=== PATIENT | female | born 1975 | race Caucasian/White ===

== ENCOUNTER 2024-05-29 17:59 | Observation (INO) | payer OTHER, SELFPAY ==
[2024-05-29] VITALS (16 sets, daily range): BP systolic 109–191; BP diastolic 53–82; BMI 58.1; BMI 57.4
--- NOTE | 2024-05-29 11:45 | ED.GENMED ---
History of Present Illness
<Mann Srinivasan PA-C - Last Filed: 05/29/24 15:34>
General
Chief Complaint: Vaginal Bleeding
Time Seen by Provider: 05/29/24 11:26
History of Present Illness
History of Present Illness:
Patient is a 49-year-old female with past medical history of anemia and abnormal vaginal bleeding here today for evaluation of anemia. The patient states over the past 4 weeks she has been having worsening bleeding. She does report passage of
clots and has noted large amounts of vaginal bleeding at times going through 1-2 pads per hour. Patient reports a longstanding history of vaginal bleeding but she has undergone workups previously with G[facility] INSTRUCTOR and they have not been able to identify
why she has been bleeding. She recently had a D&C this past December as well as implantation of an IUD but this has not improved her bleeding. The patient contacted her family doctor this past week and ordered blood work which she underwent
yesterday. She was found to have a hemoglobin of 6.6 and patient was ultimately directed to the emergency department for further testing and evaluation including blood transfusion. The patient does feel short of breath that is worsened with
exertion associated with lightheadedness, dizziness, and fatigue. No syncope. No chest pain.
Review of Systems
<Mann Srinivasan PA-C - Last Filed: 05/29/24 15:34>
Review of Systems
All Other Systems: ROS reviewed and negative except as documented in HPI and ROS
Phy Exam
<Mann Srinivasan PA-C - Last Filed: 05/29/24 15:34>
Physical Exam
Physical Exam:
GENERAL: Alert , in no apparent distress
EYE: pupils equal and reactive
NECK: Supple, no significant adenopathy.
ENT: o/p clr, mmm. Pale conjunctiva.
CARDIAC: Regular rate and rhythm .
LUNGS: Clear breath sounds bilaterally, no acute respiratory distress, no wheezes/rales/rhonchi
ABDOMEN: Soft, without focal tenderness, no r/g, no cvat
NEUROLOGICAL: Alert and oriented, no focal neuro deficits
SKIN: Warm and dry, skin intact.
MUSCULOSKELETAL: No edema, well perfused.
PSYCH: Normal and appropriate interaction.
Course
<Mann Srinivasan PA-C - Last Filed: 05/29/24 15:34>
Orders/Labs/Results
Orders:
Orders
05/29/24 11:43
Transvaginal US [US Pelvis W Transvag Combined] Urgent
Comment:
Reason For Exam: AUB, anemia, needs blood transfusion
05/29/24 11:47
Electrocardiogram (*1) Urgent
Reason for Study: Shortness of Breath
EKG- Treatment ONCE
05/29/24 11:55
Type+Screen Urgent
Complete Blood Count/With Diff Urgent
Comprehensive Metabolic Panel Urgent
PTT Urgent
Prothrombin Time Urgent
05/29/24 13:00
ABO2 Urgent
BBK Wristband Number:
05/29/24 13:16
* Blood Bank Products Urgent
Blood Bank Products: *Packed RBC Leuko(PRBC's)
Quantity: 1
Transfuse Today: Yes
Reason: Anemia
Abnormal Lab Results
05/29/24
11:55
RBC 2.49 L 10^6/uL
(4.20-5.40)
Hgb 6.2 L* g/dL
(12.0-16.0)
Hct 20.0 L* %
(37.0-47.0)
MCV 80.3 L fL
(81.0-99.0)
MCH 24.9 L pg
(27.0-31.0)
MCHC 31.0 L g/dL
(33.0-37.0)
RDW 19.7 H %
(11.5-14.5)
Abs Immat Gran (auto) 0.2 H 10^3/uL
(0-0.05)
Absolute Neuts (auto) 7.1 H 10^3/uL
(1.4-6.5)
Immature Gran % 2.2 H %
(0-0.5)
Neutrophils % 75.8 H %
(42.2-75.2)
Lymphocytes % 15.2 L %
(20.5-51.1)
Glucose 138 H mg/dl
(70-99)
Alkaline Phosphatase 128 H U/L
(38-126)
Crossmatch IS Only See Detail
05/29/24 11:55
05/29/24 11:55
Vital Signs
Initial and Last Documented VS:
Initial Vital Signs
Temp Pulse Resp BP Pulse Ox
98.1 F 86 18 151/68 99
05/29/24 10:58 05/29/24 10:58 05/29/24 10:58 05/29/24 10:58 05/29/24 10:58
Last Documented Vital Signs
Temp Pulse Resp BP Pulse Ox
98.2 F 77 22 109/53 97
05/29/24 14:52 05/29/24 14:52 05/29/24 14:52 05/29/24 14:52 05/29/24 14:30
<Maria Eugenia Shah MD - Last Filed: 05/29/24 15:48>
Orders/Labs/Results
Orders:
Orders
05/29/24 11:43
Transvaginal US [US Pelvis W Transvag Combined] Urgent
Comment:
Reason For Exam: AUB, anemia, needs blood transfusion
05/29/24 11:47
Electrocardiogram (*1) Urgent
Reason for Study: Shortness of Breath
EKG- Treatment ONCE
05/29/24 11:55
Type+Screen Urgent
Complete Blood Count/With Diff Urgent
Comprehensive Metabolic Panel Urgent
PTT Urgent
Prothrombin Time Urgent
05/29/24 13:00
ABO2 Urgent
BBK Wristband Number:
05/29/24 13:16
* Blood Bank Products Urgent
Blood Bank Products: *Packed RBC Leuko(PRBC's)
Quantity: 1
Transfuse Today: Yes
Reason: Anemia
Abnormal Lab Results
05/29/24
11:55
RBC 2.49 L 10^6/uL
(4.20-5.40)
Hgb 6.2 L* g/dL
(12.0-16.0)
Hct 20.0 L* %
(37.0-47.0)
MCV 80.3 L fL
(81.0-99.0)
MCH 24.9 L pg
(27.0-31.0)
MCHC 31.0 L g/dL
(33.0-37.0)
RDW 19.7 H %
(11.5-14.5)
Abs Immat Gran (auto) 0.2 H 10^3/uL
(0-0.05)
Absolute Neuts (auto) 7.1 H 10^3/uL
(1.4-6.5)
Immature Gran % 2.2 H %
(0-0.5)
Neutrophils % 75.8 H %
(42.2-75.2)
Lymphocytes % 15.2 L %
(20.5-51.1)
Glucose 138 H mg/dl
(70-99)
Alkaline Phosphatase 128 H U/L
(38-126)
Crossmatch IS Only See Detail
05/29/24 11:55
05/29/24 11:55
Vital Signs
Initial and Last Documented VS:
Initial Vital Signs
Temp Pulse Resp BP Pulse Ox
98.1 F 86 18 151/68 99
05/29/24 10:58 05/29/24 10:58 05/29/24 10:58 05/29/24 10:58 05/29/24 10:58
Last Documented Vital Signs
Temp Pulse Resp BP Pulse Ox
98.2 F 77 22 109/53 97
05/29/24 14:52 05/29/24 14:52 05/29/24 14:52 05/29/24 14:52 05/29/24 14:30
<Mann Srinivasan PA-C - Last Filed: 05/29/24 15:34>
MDM/Problems Addressed
Differential Diagnosis Includes:
Patient is a 49-year-old female with past medical history of anemia and abnormal vaginal bleeding here today for evaluation of anemia in the setting of abnormal uterine bleeding. Overall, patient appears very well. Vitals remarkable for an
elevated blood pressure. Physical examination described above. We will perform a pelvic exam. Will repeat blood work. Will obtain type and screen. Patient will ultimately require a blood transfusion. Will also order a transvaginal ultrasound.
Patient will require admission and G[facility]CTOR consultation.
05/29/2024 15:31: Screening labs reveal anemia with a hemoglobin of 6.2. EKG nonischemic. Transvaginal ultrasound limited but without acute abnormalities. Discussed performing a pelvic exam but patient adamantly declined. Risks discussed.
Patient consented for blood transfusion and will initiate 1 unit of PRBCs. Case was discussed with [facility] team, Dr. Gisele Gerardo. Given ongoing bleeding with symptomatic anemia we will admit to [facility] for further monitoring and
treatment/evaluation. Patient stable at time of admission. All questions answered. Case discussed with attending, Dr. Shah.
<Mann Srinivasan PA-C - Last Filed: 05/29/24 15:34>
*Critical Care Note
Total Time (30-74mins, 75-104mins- exclusive of procedures): Not Applicable
ED Attending Note
<Mann Srinivasan PA-C - Last Filed: 05/29/24 15:34>
-
Portions of this chart may have been created with voice recognition software.� Occasional wrong word or��sound alike� substitutions may have occurred due to the inherent limitations of voice recognition software.
<Maria Eugenia Shah MD - Last Filed: 05/29/24 15:48>
ED Attending Note
Patient seen and examined by attending physician: Yes
I performed the substantive portion of visit, reviewed & personally made and approve the management plan that is documented in note by myself or SHEILA.: Yes
ED Attending Note:
49 yr old female with sustained vaginal bleeding, sob, dizziness, fatigue. Noted to be very anemic here (6.2) which is a change from her reported baseline. Declines vaginal exam here in ED by our team. She will be admitted to [facility] for further
monitoring/care. Data Analytics Specialist team now at bedside. Pt awake and alert, overall well appearing.
Discharge Plan
Departure
Patient Disposition: Admit
Date of Disposition: 05/29/24
Time of Disposition: 15:28
Admit to: Med/Surg
Admit to doctor: Gisele Gerardo OBGYN
Presentation/result/management discussed w/ accepting MD/DO: Akin CASTANEDA Zahra
Patient with high blood pressure during this ER visit?: No
Condition: Fair
Covid-19: Not Applicable
Discharge Problem:
Abnormal uterine bleeding, Symptomatic anemia
Prescriptions:
No Action
albuterol sulfate 90 mcg/actuation Hfa Aerosol Inhaler
2 puff INHALATION R Q4HPRN PRN (Reason: sob)
ferrous sulfate 140 mg (45 mg iron) Tablet Extended Release
140 mg PO DAILYPRN PRN (Reason: bleeding)
Referrals:
Yuriy Sanchez MD [Family Provider] -
Interventions
Interventions:
*Risk Screen - Suicide Last Done: 05/29/24 11:51
*General Assessment Last Done: 05/29/24 11:51
*Neglect/Abuse Screening Last Done: 05/29/24 11:51
ED- Fall Risk Assessment Last Done: 05/29/24 11:50
*ED COVID-19 Vaccine History Last Done: 05/29/24 11:50
ED-Female Genitourinary Assessment Last Done: 05/29/24 11:52
Discharge Date and Time
Print Language: SERBIAN
[2024-05-29 12:51] LABS: % Basophils 0.3 % (0-2); % Eosinophils 1.4 % (0-6); % Immature Granulocytes 2.2 % (0-0.5); % Lymphocytes 15.2 % (20.5-51.1); % Monocytes 5.1 % (1.7-9.3); % Neutrophils 75.8 % (42.2-75.2); Absolute Eosinophils 0.1 10^3/uL (0-0.7); Absolute Immature Granulocytes 0.2 10^3/uL (0-0.05); Absolute Lymphocytes 1.4 10^3/uL (1.2-3.4); Absolute Monocytes 0.5 10^3/uL (0.1-0.6); Absolute Neutrophils 7.1 10^3/uL (1.4-6.5); Hemoglobin 6.2 g/dL (12.0-16.0); Mean Corpuscular Hgb 24.9 pg (27.0-31.0); Mean Corpuscular Volume 80.3 fL (81.0-99.0); Mean Platelet Volume 9.8 fL (7.4-10.4); Nucleated Red Blood Cells % 0 %; Platelet Count 277 10^3/uL (130-400); Red Blood Cell Count 2.49 10^6/uL (4.20-5.40); Red Cell Dist. Width 19.7 % (11.5-14.5); White Blood Cell Count 9.3 10^3/uL (4.8-10.8)
[2024-05-29 12:53] LABS: INR 1.11; PT 14.4 Sec (11.4-14.6)
[2024-05-29 12:54] LABS: APTT 27.7 Sec (23.4-35.0)
[2024-05-29 12:58] LABS: ALT (SGPT) 15 U/L (0-35); AST (SGOT) 15 U/L (14-36); Albumin 3.6 g/dl (3.5-5.0); Alkaline Phosphatase 128 U/L (38-126); Blood Urea Nitrogen 10 mg/dl (7-17); Calcium 9.1 mg/dl (8.4-10.2); Carbon Dioxide 26 mmol/L (22-30); Chloride 107 mmol/L (98-107); Estimated Creatinine Clearance > 125 ml/min; Glucose 138 mg/dl (70-99); Potassium 4.4 mmol/L (3.5-5.1); Sodium 137 mmol/L (135-145); Total Bilirubin 0.4 mg/dl (0.2-1.3); Total Protein 6.4 g/dl (6.3-8.2); eGFR > 60.00
--- NOTE | 2024-05-29 16:36 | HP.FOC2 ---
Focused History & Physical
Chief Complaint
HPI:
Chief Complaint: Heavy bleeding
HPI / Indication for Planned Procedure:
49yo presents from home with c/o prolonged and heavy bleeding. She states for the past year she has been experiencing AUB. She had IUDs for the last 20 years and had no bleeding at all, and then January 2023 she suddenly started to have heavy
bleeding and expelled the IUD. The bleeding continued daily between January 2023- Sep 2023. In August 2023 she states she had a D&C that she reports was unremarkable and had an IUD replaced. Bleeding finally stopped a month later. She was
amenorrheic for 5 months and then in February 2024 had another heavy bleeding episode and expelled her IUD again. This bleeding lasted for 6 weeks and eventually stopped on its own. Resuming Last month and has continued daily since. She would have
episodes of heavy bleeding passing clots. She wears depends and changes this about 5-6x/day. She c/o fatigue, feeling easily winded. Denies syncope or palpitations. She had blood work done by her PCP that showed a hgb of 6 so she was directed to the
ER. Her SUPERVISOR SANDING is Dr. Pedro with [facility].
Relevant Past Medical History: Other (Pre-diabetes, asthma)
Relevant Social History: Tobacco Use (1 PPD)
Relevant Family History: Positive for (Mom- Uterus and Breast CA, Dad- Pancreatic CA)
Relevant Past Surgical History: Positive for (D&C 08/2023, C/S x3)
Review of Systems
Review of Pertinent Systems: All Systems Negative
Medication
See Medication form for detailed medications: Yes
Medication List (including Herbals & OTC):
albuterol sulfate 90 mcg/actuation aerosol inhaler 2 puff inhalation R Q4HPRN PRN sob 05/29/24
ferrous sulfate 140 mg (45 mg iron) tablet,extended release 140 mg PO DAILYPRN PRN bleeding 05/29/24
Medications Reviewed: Yes
Allergies and Reactions
Patient has Allergies: No
Noted Allergies and Reactions:
Allergy/AdvReac Type Severity Reaction Status Date / Time
No Known Allergies Allergy Unverified 05/29/24 11:04
Pertinent Physical Exam
All Other Systems: Negative
Abdomen: Normal and Other (Pelvic: small amount of blood in vagina, cleared with 1 scopette. no cervical/vaginal masses noted. No adnexal or fundal masses appreciated but exam limited by habitus)
Diagnosis / Assessment
49yo with AUB and Anemia
Plan / Procedure
1. AUB- will start tranexamic acid to try to slow her bleeding now. patient admits to poor response to progestin therapy in the past. If no improvement of her bleeding, D&C can be performed. will make NPO after MN in the event this needs t occur
-Pelvic US appears unremarkable
-d/w patient that we can try to stabilize her now but she will need to have a prison management plan discussed with her SUPERVISOR SANDING. She has failed 2 IUD attempts and states did not do well with oral therapy. Alternative mgmt would be endometrial
ablation or hysterectomy, assuming no new uterine pathology.
2. Anemia 2/2 Uterine bleeding
-patient receiving a blood transfusion now. Only 1U ordered by ED staff, will order a 2nd Unit
-trend H/H
-feosol BID ordered
3. Continue albuterol prn
4. Regular diet- NPO after MN
[2024-05-29] MEDS: TRANEXAMIC ACID 100 IV (18:15)
[2024-05-29] MEDS: FEOSOL 325 MG PO (19:46)
[2024-05-29 19:57] LABS: Hemoglobin 7.6 g/dL (12.0-16.0)
[2024-05-29] MEDS: CYKLOKAPRON 1300 MG PO (23:09)
[2024-05-30 00:50] LABS: Hematocrit 21.5 % (37.0-47.0); Hemoglobin 7.1 g/dL (12.0-16.0)
[2024-05-30 06:46] LABS: Hematocrit 21.8 % (37.0-47.0); Hemoglobin 7.2 g/dL (12.0-16.0); Mean Corpuscular Hgb 26.4 pg (27.0-31.0); Mean Corpuscular Volume 79.9 fL (81.0-99.0); Mean Platelet Volume 9.7 fL (7.4-10.4); Platelet Count 232 10^3/uL (130-400); Red Blood Cell Count 2.73 10^6/uL (4.20-5.40); White Blood Cell Count 8.8 10^3/uL (4.8-10.8)
[2024-05-30 07:00] VITALS: BP 145/58
[2024-05-30] MEDS: FEOSOL PO ×2 (08:05→08:07)
[2024-05-30] MEDS: CYKLOKAPRON PO ×2 (08:05→08:07)
--- NOTE | 2024-05-30 10:49 | W.PN.OBG.DWH ---
Today's Communication / Plan
-
dc home
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
Assessment/Plan
-
abnormal uterine bleeding
anemia, s/p tx 2u prbc
Subjective Data
-
no bleeding since last night, relief with txa, no lightheadedness
Objective Data
-
Laboratory Results
05/30/24 06:12
05/29/24 11:55
Vital Signs
Temp Pulse Resp BP Pulse Ox
98.4 F 76 18 145/58 99
05/30/24 07:00 05/30/24 07:00 05/30/24 07:00 05/30/24 07:00 05/30/24 07:00
lungs cl
cor rrr
abd obese, soft nt
ext nt
--- NOTE | 2024-05-30 10:55 | CM ---
Patient seen bedside.
IA completed.
Patient lives with daughter.
Independent prior to admission.
Drove to the hospital.
Plan: Home no needs.
OBS form completed.
PCP: Dr Hendrix
[facility]
[2024-05-30 11:00] VITALS: BP 161/74
== END 2024-05-30 11:28 | disposition home or self-care (01) ==
LOC: 4 WEST ACU 17:59
PROVIDERS: Nurse Practitioner Family; Physician Assistant; ADMITTING PHYSICIAN Obstetrics & Gynecology; EMERGENCY PHYSICIAN Emergency Medicine; FAMILY PHYSICIAN Family Medicine
DX: N93.9 Abnormal uterine and vaginal bleeding, unspecified (principal); D64.9 Anemia, unspecified; R06.02 Shortness of breath; R42 Dizziness and giddiness; R53.83 Other fatigue; J45.909 Unspecified asthma, uncomplicated; Z80.3 Family history of malignant neoplasm of breast; Z80.8 Family history of malignant neoplasm of other organs or systems; R73.03 Prediabetes
CPT/HCPCS: 76830; 76856; 80053; 85014; 85018; 85025; 85027; 85610; 85730; 86850; 86900; 86901; 86920; 93005; 96374; 99285; G0378; P9016